=== PATIENT | female | born 1960 | race Caucasian/White ===

== ENCOUNTER 2016-11-21 20:15 | Emergency (ER) | payer OTHER, MEDICARE ==
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
--- NOTE | 2016-11-21 21:19 | ED ORDER SUMMARY ---
..... Patient: MIKE SAENZ OrderSheet [facility] VisitID: [id number] [address] [place] [address] 56y, F Registration Date/Time: 11/21/2016 ORDER SHEET Weight: 68.0 kg (stated) Allergies: No Known Drug Allergy GENERAL ORDERS: Chest 2V Urgent (20:57 11/21/2016 HSoule per protocol) (Ack 21:01 AMcQuoid ER Tech1) MEDICATION ORDERS: IV FLUIDS: ORDER SHEET NOTES: [Electronically signed by Liban Gillis DO (22:28 11/21/2016)] [Electronically signed by Giuliana Carcamo (00:08 11/22/2016)] [Electronically locked/signed by Giuliana Carcamo (00:08 11/22/2016)]
--- NOTE | 2016-11-21 21:19 | ED ORDER SUMMARY ---
..... Patient: MIKE SAENZ OrderSheet [facility] VisitID: [id number] [address] [place] [address] 56y, F Registration Date/Time: 11/21/2016 ORDER SHEET Weight: 68.0 kg (stated) Allergies: No Known Drug Allergy GENERAL ORDERS: Chest 2V Urgent (20:57 11/21/2016 HSoule per protocol) (Ack 21:01 AMcQuoid ER Tech1) MEDICATION ORDERS: IV FLUIDS: ORDER SHEET NOTES: [Electronically signed by Liban Gillis DO (22:28 11/21/2016)] [Electronically signed by Giuliana Carcamo (00:08 11/22/2016)] [Electronically locked/signed by Giuliana Carcamo (00:08 11/22/2016)]
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
--- NOTE | 2016-11-21 22:27 | DIAGNOSTIC IMAGING REPORT ---
PROCEDURE: XR CHEST 2 VIEW INDICATION: INJURY TECHNIQUE: Single view. COMPARISON: None. FINDINGS: The cardiomediastinal contour is normal. No central venous congestion. Mild biapical pleural irregularity. The lungs hyperinflated but clear without focal consolidation, pleural effusion or pneumothorax. The osseous structures are intact. IMPRESSION: 1. No acute disease. 2. Findings of mild COPD/emphysema.
--- NOTE | 2016-11-22 00:09 | ED MED RECONCILIATION SUMMARY ---
Patient: MIKE SAENZ Medication Reconciliation Report [facility]erg[facility] VisitID: [id number] [address] [place] [address] 56y, F Registration Date/Time: 11/21/2016 Weight: 68.0 kg Height/Length: 67 in. BMI: 23.5 ALLERGIES: No Known Drug Allergy The patient's Home Medications are listed below: CONTINUE TAKING THE FOLLOWING MEDICATIONS: Adderall Oral ALPRAZolam Oral Lavoxile Levoxyl Oral Tramadol HCL Oral Wellbutrin Oral The source(s) of the original Home Medication information: patient The following Medications were given to the patient in the Emergency Department: None. The following Medications were prescribed to the patient: Hydrocodone/APAP 5mg / 325mg: take 1-2 orally every 6 hours as needed for pain. Dispense ten (10). No refill. -- Liban Gillis DO Ibuprofen 600mg tablets: take 1 tablet orally every 8 hours as needed for pain. Dispense thirty (30). No refills. -- Liban Gillis DO
--- NOTE | 2016-11-22 00:09 | ED MAR SUMMARY ---
..... Medication Administration Record [facility] [address], [place] [id number] Patient: MIKE SAENZ Visit ID: [id number] 56y, F Weight: 68.0 kg Height/Length: 67 in BMI: 23.5 ALLERGIES: No Known Drug Allergy
--- NOTE | 2016-11-22 00:09 | ED MED RECONCILIATION SUMMARY ---
Patient: MIKE SAENZ Medication Reconciliation Report [facility] VisitID: [id number] [address] [place] [address] 56y, F Registration Date/Time: 11/21/2016 Weight: 68.0 kg Height/Length: 67 in. BMI: 23.5 ALLERGIES: No Known Drug Allergy The patient's Home Medications are listed below: CONTINUE TAKING THE FOLLOWING MEDICATIONS: Adderall Oral ALPRAZolam Oral Lavoxile Levoxyl Oral Tramadol HCL Oral Wellbutrin Oral The source(s) of the original Home Medication information: patient The following Medications were given to the patient in the Emergency Department: None. The following Medications were prescribed to the patient: Hydrocodone/APAP 5mg / 325mg: take 1-2 orally every 6 hours as needed for pain. Dispense ten (10). No refill. -- Liban Gillis DO Ibuprofen 600mg tablets: take 1 tablet orally every 8 hours as needed for pain. Dispense thirty (30). No refills. -- Liban Gillis DO
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
--- NOTE | 2016-11-22 00:09 | ED MAR SUMMARY ---
..... Medication Administration Record [facility] [address] [place], [place] [id number] Patient: MIKE SAENZ Visit ID: [id number] 56y, F Weight: 68.0 kg Height/Length: 67 in BMI: 23.5 ALLERGIES: No Known Drug Allergy
== END 2016-11-21 21:27 | disposition home or self-care (01) ==
LOC: ED SRH 20:15
DX: S20.219A Contusion of unspecified front wall of thorax, initial encounter (principal); I10 Essential (primary) hypertension; V43.52XA Car driver injured in collision with other type car in traffic accident, initial encounter; Y93.89 Activity, other specified; Y99.9 Unspecified external cause status; Y92.9 Unspecified place or not applicable; E03.9 Hypothyroidism, unspecified; M79.7 Fibromyalgia; Z79.891 Long term (current) use of opiate analgesic; Z79.899 Other long term (current) drug therapy